=== PATIENT | female | born 1985 | race Caucasian/White ===

== ENCOUNTER 2017-02-01 17:17 | Inpatient (IN) | payer MEDICAID, OTHER ==
[~2017-02-01] VITALS: Ht 162.6 cm; Wt 90.5 kg
[2017-02-01] MEDS ORDERED: ONDANSETRON 4 MG INJ IV STA (20:06)
[2017-02-01] MEDS ORDERED: SOD CHLORIDE 0.9% 1,000 ML IV STA (20:06)
[2017-02-01] MEDS ORDERED: METOCLOPRAMIDE 10 MG INJ IV ONE (20:30)
[2017-02-01 20:47] LABS: BASOPHIL # 0.1 10^3/ul (0.0-0.1); BASOPHILS % 0.4 % (0.0-2.0); EOSINOPHILS # 0.1 10^3/ul (0.0-0.5); EOSINOPHILS % 0.7 % (0.0-7.0); HEMATOCRIT 38.4 % (37.0-47.0); LYMPHOCYTES # 2.5 10^3/ul (0.8-2.9); LYMPHOCYTES % 13.1 % (15.0-51.0); MEAN CORPUSCULAR HEMOGLOBIN 28.6 pg (29.0-33.0); MEAN CORPUSCULAR HGB CONC 33.9 g/dl (32.0-37.0); MEAN CORPUSCULAR VOLUME 84.6 fl (82.0-101.0); MEAN PLATELET VOLUME 9.1 fl (7.4-10.4); MONOCYTES % 5.1 % (0.0-11.0); NEUTROPHIL # 15.6 10^3/ul (1.6-7.5); NEUTROPHILS % 80.2 % (39.0-77.0); PLATELET COUNT 424 10^3/UL (140-415); RED BLOOD COUNT 4.54 10^6/ul (4.20-5.40); RED CELL DISTRIBUTION WIDTH 13.4 % (11.5-14.5); WHITE BLOOD COUNT 19.4 10^3/ul (4.8-10.8)
[2017-02-01 21:11] LABS: ALBUMIN 4.7 g/dl (3.3-4.9); ALBUMIN/GLOBULIN RATIO 1.3; BILIRUBIN,INDIRECT 0.2 mg/dl (0-1.1); BILIRUBIN,TOTAL 0.2 mg/dl (0.2-1.3); CALCIUM 9.2 mg/dl (8.4-10.2); CREATININE 0.69 mg/dl (0.44-1.00); POTASSIUM 3.7 mmol/L (3.5-5.1); TOTAL PROTEIN 8.3 g/dl (6.1-8.1)
[2017-02-01 21:20] LABS: ADD UMIC YES; UR AMORPHOUS CRYSTAL FEW /HPF (NONE SEEN); UR ASCORBIC ACID NEGATIVE (NEGATIVE); UR BILIRUBIN (Dip) 1+ mg/dL (NEGATIVE); UR BLOOD (Dip) 1+ mg/dL (NEGATIVE); UR CLARITY SLIGHTLY CLOUDY (CLEAR); UR COLOR AMBER (YELLOW); UR GLUCOSE (Dip) NEGATIVE (NEGATIVE); UR KETONES (Dip) TRACE mg/dL (NEGATIVE); UR LEUKOCYTE ESTERASE (Dip) NEGATIVE Leu/ul (NEGATIVE); UR MUCUS MANY /HPF (NONE SEEN); UR NITRITE (Dip) NEGATIVE (NEGATIVE); UR RBC 16 /HPF (0-5); UR SPECIFIC GRAVITY (Dip) 1.036 (1.003-1.030); UR SQUAMOUS EPITHELIAL CELL FEW /HPF (FEW); UR TOTAL PROTEIN (Dip) 1+ mg/dl (NEGATIVE); UR UROBILINOGEN (Dip) 1+ mg/dL (NEGATIVE)
--- NOTE | 2017-02-01 21:34 | RADRPT ---
PROCEDURE: US Pelvis. CLINICAL INDICATION: Lower abdominal pain. Positive test. TECHNIQUE: Multiple sonographic images of the pelvis were obtained utilizing a transabdominal and endovaginal technique. The images were reviewed on a PACS workstation. COMPARISON: None available. FINDINGS: The uterus is normal in size and echotexture and measures 10.3 x 4.2 x 5.9 cm. The endometrial echo complex is normal and measures 4.1 mm. There is no evidence of an intrauterine gestational sac. The right ovary has a normal echotexture and measures 3.4 x 2.4 x 2.6 cm. The left ovary has a norm al echotexture and measures 3.2 x 2.7 x 3.0 cm. There is a tiny amount of free fluid in the cul-de-s ac. There is a complex heterogeneous appearing right adnexal mass measuring 7.4 x 3.9 x 6.0 cm.. IMPRESSION: 1. No evidence of an intrauterine gestation with a complex appearing right adnexal mass measuring 7. 4 x 3.9 x 6.0 cm. This is a high suspicion for ectopic . ACCOUNT CONSULTANT consultation is suggested. Note: A call report was made to Romelia Chamorro Pa-c on 02/01/2017 9:33:26 PM. RPTAT: [facility] Physician Dominik Date Time Electronically viewed and signed by Physician Dominik on 02/01/2017 21:34 /
[2017-02-02] VITALS (18 sets, daily range): BP systolic 114–158; BP diastolic 48–82; PULSE 62–114; RESP 13–26; TEMP 98.1; Ht 162.6 cm; Wt 90.5 kg
--- NOTE | 2017-02-02 00:42 | ERD ---
ER Documentation Chief Complaint Date/Time DATE: 02/02/17 TIME: 00:37 Chief Complaint Abdominal pain that started 4 days ago HPI 31-year-old female no significant past medical history is a A1 presents to the ED complaining of intermittent abdominal pain that started 4 days ago. Patient reports that she has lower abdominal pain. Her last menses on November. States that she experienced vaginal spotting on January 21, 2017. Reports that her last bowel movement was this morning. States that she also experienced some nausea and vomiting. Denies any chest pain, shortness of breath, fever, chills, diarrhea, wheezing, shortness of breath. Reports that she is unsure if she is . ROS All systems reviewed and are negative except as per history of present illness. Allergies Allergies: Coded Allergies: No Known Allergy (Unverified , 02/01/17) PMhx/Soc Medical and Surgical Hx: pt denies Medical Hx, pt denies Surgical Hx History of Surgery: No Anesthesia Reaction: No Hx Neurological Disorder: No Hx Respiratory Disorders: No Hx Cardiac Disorders: No Hx Psychiatric Problems: No Hx Miscellaneous Medical Probl: No Hx Alcohol Use: No Hx Substance Use: No Hx Tobacco Use: No Smoking Status: Never smoker Physical Exam Vitals Vital Signs Date Time Temp Pulse Resp B/P Pulse Ox O2 Delivery O2 Flow Rate FiO2 02/02/17 00:10 98.1 66 17 122/69 98 Room Air 02/01/17 17:40 98.9 109 18 148/82 97 Physical Exam Const: [id number], well-nourished. In no acute distress. Head: Atraumatic, normocephalic Eyes: Normal Conjunctiva without injection. No purulent discharge. ENT: Normal external ear, nose. Moist oropharynx without tonsillar exudates. Non -erythematous pharynx. Uvula midline. No drooling. No trismus. Neck: No cervical midline tenderness. Full range of motion. No meningismus. No cervical lymphadenopathy. No JVD. Resp: Clear to auscultation bilaterally. No wheezing, rhonchi, rales, or crackles. No accessory muscle use. No retractions. Cardio: Regular rate and rhythm. No murmurs, rubs or gallops. Abd: Soft, right and left lower quadrant tenderness, non distended. Normal bowel sounds. No palpable masses. No rebound tenderness. No guarding. Negative McBurney's point. Negative psoas sign. Negative obturator sign. Skin: No petechiae or rashes Back: No midline tenderness. No CVA tenderness. Ext: No cyanosis, or edema. Neur: Awake and alert. Normal gait. Normal coordination. Psych: Normal Mood and Affect Result Diagram: 02/03/17 0506 02/01/172014 Results 24 hrs Laboratory Tests Test 02/01/17 20:15 White Blood Count 19.410^3/ul Red Blood Count 4.5410^6/ul Hemoglobin 13.0g/dl Hematocrit 38.4% Mean Corpuscular Volume 84.6fl Mean Corpuscular Hemoglobin 28.6pg Mean Corpuscular Hemoglobin Concent 33.9g/dl Red Cell Distribution Width 13.4% Platelet Count 39612^3/UL Mean Platelet Volume 9.1fl Neutrophils % 80.2% Lymphocytes % 13.1% Monocytes % 5.1% Eosinophils % 0.7% Basophils % 0.4% Nucleated Red Blood Cells % 0.0/100WBC Neutrophils # 15.610^3/ul Lymphocytes # 2.510^3/ul Monocytes # 1.010^3/ul Eosinophils # 0.110^3/ul Basophils # 0.110^3/ul Nucleated Red Blood Cells # 0.010^3/ul Urine Color LES Urine Clarity SLIGHTLY CLOUDY Urine pH 5.0 Urine Specific [place] 1.036 Urine Ketones TRACEmg/dL Urine Nitrite NEGATIVEmg/dL Urine Bilirubin 1+mg/dL Urine Urobilinogen 1+mg/dL Urine Leukocyte Esterase NEGATIVELeu/ul Urine Microscopic RBC 16/HPF Urine Microscopic WBC 1/HPF Urine Squamous Epithelial Cells FEW/HPF Urine Amorphous Crystals FEW/HPF Urine Mucus MANY/HPF Urine Hemoglobin 1+mg/dL Urine Glucose NEGATIVEmg/dL Urine Total Protein 1+mg/dl Sodium Level 141mmol/L Potassium Level 3.7mmol/L Chloride Level 104mmol/L Carbon Dioxide Level 25mmol/L Anion Gap 16 Blood Urea Nitrogen 14mg/dl Creatinine 0.69mg/dl Glucose Level 120mg/dl Calcium Level 9.2mg/dl Total Bilirubin 0.2mg/dl Direct Bilirubin 0.00mg/dl Indirect Bilirubin 0.2mg/dl Aspartate Amino Transf (AST/SGOT) 25IU/L Alanine Aminotransferase (ALT/SGPT) 36IU/L Alkaline Phosphatase 115IU/L Total Protein 8.3g/dl Albumin 4.7g/dl Globulin 3.60g/dl Albumin/Globulin Ratio 1.30 Lipase 26U/L Beta HCG, Quantitative 1304.7mIU/ml Current Medications Medications (Trade) Dose Ordered Sig/Raj Route PRN Reason Start Time Stop Time Status Last Admin Dose Admin Sodium Chloride (NS) 1,000 ml @ 1,000 mls/hr Q1H STAT IV 02/01/17 20:06 02/01/17 21:05 DC 02/01/17 20:59 Ondansetron HCl (Zofran Inj) 4 mg ONCE STAT IV 02/01/17 20:06 02/01/17 20:07 Cancel Metoclopramide HCl 10 mg 10 mg ONCE ONCE IV 02/01/17 20:30 02/01/17 20:31 DC 02/01/17 20:59 Lactated Ringer's 1,000 ml @ 125 mls/hr Q8H IV 02/02/17 01:29 02/04/17 17:33 Cefazolin Sodium/ Dextrose (Ancef 2 Gm/50 ml (Pmx)) 50 ml @ 100 mls/hr PRE-OP ONCE IVPB 02/02/17 01:30 02/02/17 01:59 DC Procedures/MDM 31-year-old female patient with no significant past medical history presents to the ED complaining of nausea, abdominal pain that started 4 days ago. Patient is afebrile and nontoxic-appearing. Patient has normal vital signs. She is a A1. Positive urine noted here in the ED. An ultrasound, beta- hCG, CBC, type and RH, UA was ordered to evaluate patient. CBC: No evidence of severe infection or anemia Urine: No elevation in nitrites, leukocyte esterase, hematuria. No evidence of UTI Rh: O positive No indication for Rhogam at this time. beta Hc PROCEDURE: US Pelvis. CLINICAL INDICATION: Lower abdominal pain. Positive test. TECHNIQUE: Multiple sonographic images of the pelvis were obtained utilizing a transabdominal and endovaginal technique. The images were reviewed on a PACS workstation. COMPARISON: None available. FINDINGS: The uterus is normal in size and echotexture and measures 10.3 x 4.2 x 5.9 cm. The endometrial echo complex is normal and measures 4.1 mm. There is no evidence of an intrauterine gestational sac. The right ovary has a normal echotexture and measures 3.4 x 2.4 x 2.6 cm. The left ovary has a normal echotexture and measures 3.2 x 2.7 x 3.0 cm. There is a tiny amount of free fluid in the cul-de-sac. There is a complex heterogeneous appearing right adnexal mass measuring 7.4 x 3.9 x 6.0 cm.. IMPRESSION: 1. No evidence of an intrauterine gestation with a complex appearing right adnexal mass measuring 7.4 x 3.9 x 6.0 cm. This is a high suspicion for ectopic . MANAGER PULMONARY consultation is suggested. Note: A call report was made to Romelia Chamorro Pa-c on 02/01/2017 9:33:26 PM. She was noted to have a probable ectopic in the right adnexa. Patient 's bleeding symptoms have stabilized while in the department. Low suspicion for symptomatic anemia, sepsis, PID, appendicitis, ovarian torsion, tubo- ovarian abscess, surgical abdomen, or other emergent conditions. This was discussed with my supervising physician, Dr. Bustillo who agreed that patient needed to have further care and treatment under laborist business relations manager. The laborist on-call, Dr. Rene was consulted and she will be admitting the patient for possible right ectopic . Patient is hemodynamically stable at this time. Patient agreed to the admission. Dr. Rene performed a pelvic exam. Departure Diagnosis: Primary Impression: Ectopic Location of ectopic : unspecified location Intrauterine status: unspecified Qualified Code: O00.90 - Ectopic , unspecified location, unspecified whether intrauterine present Condition: Stable ROMELIA CHAMORRO PA-C Feb 02, 2017 00:42
--- NOTE | 2017-02-02 01:25 | CONS ---
Date/Time of Note Date/Time of Note DATE: 02/02/17 TIME: :18 Assessment/Plan Assessment/Plan Chief Complaint/Hosp Course Abdominal pain hCG above discriminatory zone, no evidence of IUP Complex adnexal right mass Highly suspicious for ectopic Currently patient hemodynamically stable No evidence of active bleeding Right ovarian mass size 7 x 6 cm HCG 13,000 Patient is a candidate for surgical management Discussed with the patient about the procedure of diagnostic laparoscopy possible laparoscopic salpingostomy versus salpingectomy possible D&C possible open and possible blood transfusion Risks and benefits of procedure including risk of infection, bleeding, damage to adjacent structures including bowel and bladder risk of conversion to open procedure and risk of uterine perforation risk of blood transfusion including but not limited to blood borne infection including HIV, hepatitis B and C and transfusion reaction discussed with the patient in detail. Patient verbalized understanding will continue to observe the patient closely plan to admit the patient to MedSurg unit Keep the patient on p.o. IV fluid D5 LR 125 cc/h Plan to proceed with surgery in a.m. Problems: Consultation Date/Type/Reason Admit Date/Time Date of Consultation: Feb 02, 2017 Type of Consultation: DATA ANALYSIS ASSISTANT Reason for Consultation Evaluation for Ectopic Hx of Present Illness 31-year-old with amenorrhea for 6 weeks presented with complaint of abdominal pain started 5 days ago and the mid lower abdomen that increase since yesterday. Patient also reports had some light spotting/bleeding when she presented to the emergency room. Patient denies any dizziness, lightheadedness , shortness of breath or chest pain. Pain is mild to moderate in both lower abdomen. She was noted to have positive test and hCG is 13,000 and an ultrasound there is no evidence of IUP with evidence of a right complex adnexal mass 7 x 6 cm suspicious for ectopic . I was consulted by VEGETABLE FARMER at the emergency room for further evaluation. Patient was unaware of current episode. She was not using any control. LMP January 21, 2017. 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 Smokes about 10 cigarettes a day for the last 6 months.) Drug Use: none Other Social History Patient is not Exam/Review of Systems Vital Signs Vitals Vital Signs Date Time Temp Pulse Resp B/P Pulse Ox O2 Delivery O2 Flow Rate FiO2 02/02/17 00:10 98.1 66 17 122/69 98 Room Air Exam Constitutional: alert, oriented, well developed Psych: nl mood/affect, no complaints Head: atraumatic, normocephalic Eyes: EOMI, nl conjunctiva, nl lids ENMT: nl external ears & nose, nl lips & teeth, nl nasal mucosa & septum Neck: non-tender, supple Respiratory: clear to auscultation, normal air movement Cardiovascular: nl pulses, regular rate and rhythm Gastrointestinal: soft, tender (Tenderness in the lower abdomen. No rebound tenderness, no guarding, no rigidity, no evidence of acute abdomen) Genitourinary - Female: nl adnexae, nl external genitalia Musculoskeletal: nl extremities to inspection, nl gait and stance Extremities: normal pulses Neurological: PRODUCER ASSISTANT II-XII intact, nl mental status Results Result Diagram: 02/01/17201402/01/172014 Results 24 hrs Laboratory Tests Test 02/01/17 20:15 White Blood Count 19.4 H Red Blood Count 4.54 Hemoglobin 13.0 Hematocrit 38.4 Mean Corpuscular Volume 84.6 Mean Corpuscular Hemoglobin 28.6 L Mean Corpuscular Hemoglobin Concent 33.9 Red Cell Distribution Width 13.4 Platelet Count 424 H Mean Platelet Volume 9.1 Neutrophils % 80.2 H Lymphocytes % 13.1 L Monocytes % 5.1 Eosinophils % 0.7 Basophils % 0.4 Nucleated Red Blood Cells % 0.0 Neutrophils # 15.6 H Lymphocytes # 2.5 Monocytes # 1.0 H Eosinophils # 0.1 Basophils # 0.1 Nucleated Red Blood Cells # 0.0 Urine Color LES Urine Clarity SLIGHTLY CLOUDY A Urine pH 5.0 Urine Specific [place] 1.036 H Urine Ketones TRACE A Urine Nitrite NEGATIVE Urine Bilirubin 1+ H Urine Urobilinogen 1+ H Urine Leukocyte Esterase NEGATIVE Urine Microscopic RBC 16 H Urine Microscopic WBC 1 Urine Squamous Epithelial Cells FEW Urine Amorphous Crystals FEW A Urine Mucus MANY A Urine Hemoglobin 1+ H Urine Glucose NEGATIVE Urine Total Protein 1+ H Sodium Level 141 Potassium Level 3.7 Chloride Level 104 Carbon Dioxide Level 25 Anion Gap 16 Blood Urea Nitrogen 14 Creatinine 0.69 Glucose Level 120 Calcium Level 9.2 Total Bilirubin 0.2 Direct Bilirubin 0.00 Indirect Bilirubin 0.2 Aspartate Amino Transf (AST/SGOT) 25 Alanine Aminotransferase (ALT/SGPT) 36 Alkaline Phosphatase 115 Total Protein 8.3 H Albumin 4.7 Globulin 3.60 H Albumin/Globulin Ratio 1.30 Lipase 26 Beta HCG, Quantitative 1304.7 Procedures Procedures PROCEDURE: US Pelvis. CLINICAL INDICATION: Lower abdominal pain. Positive test. TECHNIQUE: Multiple sonographic images of the pelvis were obtained utilizing a transabdominal and endovaginal technique. The images were reviewed on a PACS workstation. COMPARISON: None available. FINDINGS: The uterus is normal in size and echotexture and measures 10.3 x 4.2 x 5.9 cm. The endometrial echo complex is normal and measures 4.1 mm. There is no evidence of an intrauterine gestational sac. The right ovary has a normal echotexture and measures 3.4 x 2.4 x 2.6 cm. The left ovary has a normal echotexture and measures 3.2 x 2.7 x 3.0 cm. There is a tiny amount of free fluid in the cul-de-sac. There is a complex heterogeneous appearing right adnexal mass measuring 7.4 x 3.9 x 6.0 cm.. IMPRESSION: 1. No evidence of an intrauterine gestation with a complex appearing right adnexal mass measuring 7.4 x 3.9 x 6.0 cm. This is a high suspicion for ectopic . DATA ANALYSIS ASSISTANT consultation is suggested. Note: A call report was made to Romelia Chamorro Pa-c on 02/01/2017 9:33:26 PM. RANDELL CUTLER MD Feb 02, 2017 01:25
[2017-02-02] MEDS ORDERED: CEFAZOLIN 2 GM/50 ML (PMX) 50 ML IVPB ONE (01:30)
[2017-02-02 03:14] LABS: BASOPHIL # 0.1 10^3/ul (0.0-0.1); BASOPHILS % 0.4 % (0.0-2.0); EOSINOPHILS # 0.3 10^3/ul (0.0-0.5); EOSINOPHILS % 1.6 % (0.0-7.0); HEMOGLOBIN 11.4 g/dl (12.0-16.0); LYMPHOCYTES # 4.1 10^3/ul (0.8-2.9); LYMPHOCYTES % 25.3 % (15.0-51.0); MEAN CORPUSCULAR HEMOGLOBIN 27.7 pg (29.0-33.0); MEAN CORPUSCULAR HGB CONC 32.6 g/dl (32.0-37.0); MEAN PLATELET VOLUME 9.1 fl (7.4-10.4); MONOCYTE # 1.2 10^3/ul (0.3-0.9); MONOCYTES % 7.2 % (0.0-11.0); NEUTROPHIL # 10.5 10^3/ul (1.6-7.5); NEUTROPHILS % 65.1 % (39.0-77.0); PLATELET COUNT 342 10^3/UL (140-415); RED BLOOD COUNT 4.12 10^6/ul (4.20-5.40); RED CELL DISTRIBUTION WIDTH 13.6 % (11.5-14.5); WHITE BLOOD COUNT 16.1 10^3/ul (4.8-10.8)
[2017-02-02] MEDS: LACTATED RINGER'S 1,000 ML IV SCH ×4 (03:21→17:18)
[2017-02-02] MEDS ORDERED: morphine 4 MG/ML VIAL IV PRN ×2 (03:30→20:30)
[2017-02-02] MEDS ORDERED: ONDANSETRON 4 MG INJ IV PRN ×2 (03:30→18:00)
[2017-02-02] MEDS ORDERED: GLYCOPYRROLATE 0.4 MG INJ ONE ×2 (07:00)
[2017-02-02] MEDS ORDERED: NEOSTIGMINE 3 MG/3 ML SYRINGE ONE (07:00)
--- NOTE | 2017-02-02 15:16 | HPN ---
Date/Time of Note Date/Time of Note DATE: 02/02/17 TIME: 15:05 Interval H&P Admission Note February 02, 2017 Preoperative history and physical This patient is 31 years old 4 para 2 1 who had her last menstrual period about 5 weeks her last delivery was in 2009 she had an IUD 2013 She was not using any contraceptive method during the past 3 years, She did not know that she became , however started having lower abdominal pain and came to emergency room around midnight .On examination in the emergency room her beta-hCG was 1300 IU . she had an ultrasound study done which is reported; uterus is normal in size and texture. Endometrial echo complex is normal 4.1 mm ,no evidence of intrauterine ' the right ovary was normal , left ovary was also normal . A small amount of free fluid in the posterior cul-de-sac. There was a complex heterogeneous appearing right adnexal mass measuring 7.4 x 3.9 x 6 cm and the impression of the radiologist was strongly suspicious of ectopic . When I examined her today. I would describe her as a well-developed well- nourished woman . her main complaint is lower abdominal pain and cramping. On examination her ear nose throat chest heart lungs were normal except that abdomen was somewhat tender on palpation on both right and left quadrant no CVA tenderness. On pelvic examination vulva and vagina was normal the cervix was not very tender on motion however she did have some tenderness. Laboratory Tests Test 02/01/17 20:15 02/02/17 03:00 02/02/17 07:38 White Blood Count 19.410^3/ul 16.110^3/ul Red Blood Count 4.5410^6/ul 4.1210^6/ul Hemoglobin 13.0g/dl 11.4g/dl Hematocrit 38.4% 35.0% Mean Corpuscular Volume 84.6fl 85.0fl Mean Corpuscular Hemoglobin 28.6pg 27.7pg Mean Corpuscular Hemoglobin Concent 33.9g/dl 32.6g/dl Red Cell Distribution Width 13.4% 13.6% Platelet Count 54843^3/UL 64441^3/UL Mean Platelet Volume 9.1fl 9.1fl Neutrophils % 80.2% 65.1% Lymphocytes % 13.1% 25.3% Monocytes % 5.1% 7.2% Eosinophils % 0.7% 1.6% Basophils % 0.4% 0.4% Nucleated Red Blood Cells % 0.0/100WBC 0.0/100WBC Neutrophils # 15.610^3/ul 10.510^3/ul Lymphocytes # 2.510^3/ul 4.110^3/ul Monocytes # 1.010^3/ul 1.210^3/ul Eosinophils # 0.110^3/ul 0.310^3/ul Basophils # 0.110^3/ul 0.110^3/ul Nucleated Red Blood Cells # 0.010^3/ul 0.010^3/ul Urine Color LES Urine Clarity SLIGHTLY CLOUDY Urine pH 5.0 Urine Specific [place] 1.036 Urine Ketones TRACEmg/dL Urine Nitrite NEGATIVEmg/dL Urine Bilirubin 1+mg/dL Urine Urobilinogen 1+mg/dL Urine Leukocyte Esterase NEGATIVELeu/ul Urine Microscopic RBC 16/HPF Urine Microscopic WBC 1/HPF Urine Squamous Epithelial Cells FEW/HPF Urine Amorphous Crystals FEW/HPF Urine Mucus MANY/HPF Urine Hemoglobin 1+mg/dL Urine Glucose NEGATIVEmg/dL Urine Total Protein 1+mg/dl Sodium Level 141mmol/L Potassium Level 3.7mmol/L Chloride Level 104mmol/L Carbon Dioxide Level 25mmol/L Anion Gap 16 Blood Urea Nitrogen 14mg/dl Creatinine 0.69mg/dl Glucose Level 120mg/dl Calcium Level 9.2mg/dl Total Bilirubin 0.2mg/dl Direct Bilirubin 0.00mg/dl Indirect Bilirubin 0.2mg/dl Aspartate Amino Transf (AST/SGOT) 25IU/L Alanine Aminotransferase (ALT/SGPT) 36IU/L Alkaline Phosphatase 115IU/L Total Protein 8.3g/dl Albumin 4.7g/dl Globulin 3.60g/dl Albumin/Globulin Ratio 1.30 Lipase 26U/L Beta HCG, Quantitative 1304.7mIU/ml 1000.8mIU/ml Current Medications Medications (Trade) Dose Ordered Sig/Raj Route PRN Reason Start Time Stop Time Status Last Admin Dose Admin Sodium Chloride (NS) 1,000 ml @ 1,000 mls/hr Q1H STAT IV 02/01/17 20:06 02/01/17 21:05 DC 02/01/17 20:59 Ondansetron HCl (Zofran Inj) 4 mg ONCE STAT IV 02/01/17 20:06 02/01/17 20:07 Cancel Metoclopramide HCl 10 mg 10 mg ONCE ONCE IV 02/01/17 20:30 02/01/17 20:31 DC 02/01/17 20:59 Lactated Ringer's 1,000 ml @ 125 mls/hr Q8H IV 02/02/17 01:29 02/02/17 03:21 Cefazolin Sodium/ Dextrose (Ancef 2 Gm/50 ml (Pmx)) 50 ml @ 100 mls/hr PRE-OP ONCE IVPB 02/02/17 01:30 02/02/17 01:59 DC Morphine Sulfate (morphine) 3 mg Q3H PRN IV PAIN 02/02/17 03:30 Ondansetron HCl (Zofran Inj) 4 mg Q6H PRN IV NAUSEA AND/OR VOMITING 02/02/17 03:30 Due to suspicion of the ectopic with positive test although the level being low at 1300 and complain of pain and adnexal mass reported on ultrasound as well as the suspicion of ectopic the findings was discussed with the patient with a suggestion for her to undergo a D&C, diagnostic laparoscopy and removal of ectopic and most likely right salpingectomy. I also mentioned to her that with the other remaining tube she should be able to become although the chance of ectopic will be slightly higher than normal. The small likelihood of a blood loss and need for transfusion as well as possibility of infection in the complication of the procedure injury to any other organ in the abdomen was mentioned to her. Both her and her sister understand all of these possibilities and she requested to undergo this procedure. ANGELITO BASSETT MD Feb 02, 2017 15:16
--- NOTE | 2017-02-02 17:30 | OPR ---
Operative Report Planned Procedure Procedure date Please remove this dictation Anesthesia Type: spinal Physician Certification I ANGELITO BASSETT MD Feb 02, 2017 17:30 Procedure Description Under satisfactory Spinal anesthesia, the patient was prepped and draped and placed in a supine position, tilted to the left. Pfannenstiel incision was made , carried through the subcutaneous tissue. Bleeders brought under control with electrocautery. Fascia incised to the length of the incision. Rectus muscles from the fascia, divided midline. Peritoneum exposed, entered through a transverse incision. Exploration of abdomen revealed gravid uterus. Bladder flap was developed. Transverse incision was made in the lower segment of the uterus. Amniotic sac ruptured. clear amniotic fluid noted. [] Nasal oropharyngeal suction was performed. The baby was handed to the team for immediate attention. The placenta was delivered manually intact. Uterine cavity was cleaned with wet sponge and drainage established. Uterus closed in 2 layers using 0 chromic catgut in continuous fashion. Peritoneal cavity irrigated with warm saline. Sponge, needle and instrument count reported to be correct. Abdominal peritoneum closed with Double 0 chromic catgut continuously. Rectus muscle approximated with Same material. Fascia closed with Vicryl 1, and skin closed with saulo. Estimated blood loss 600 cc. Post-Procedure Findings: Live Baby Female with score of 18 1 minute 8 from 5 minutes the weight of the baby was 6 lbs. 13 oz. Physician Certification I, the undersigned physician, hereby certify that I have discussed the procedure described in this consent form with this patient (or the patient's legal dental sales representative), including: * The risk and benefits of the procedure; * Any adverse reactions that may reasonably be expected to occur; * Any alternative efficacious methods of treatment which may be medically viable ; * The potential problems that may occur during recuperation; * Potential for blood transfusion and associated risks/benefits; and * Any research or economic interest I may have regarding this treatment. I further certify that the patient/legally responsible person was encouraged to ask question and that all questions were answered. ANGELITO BASSETT MD Feb 02, 2017 17:30
[2017-02-02] MEDS ORDERED: SUCCINYLCHOLINE CHLORIDE 100 MG/5 ML SYG IV ONE (17:51)
[2017-02-02] MEDS ORDERED: PROPOFOL 20 ML ONE ×2 (17:51→18:19)
[2017-02-02] MEDS ORDERED: FENTAnyl 50 MCG/ML VIAL ONE (17:51)
[2017-02-02] MEDS ORDERED: ROCURONIUM 50 MG INJ ONE (17:51)
[2017-02-02] MEDS ORDERED: MIDAZOLAM 1 MG/ML 2 ML INJ ONE (17:51)
[2017-02-02] MEDS ORDERED: LIDOCAINE 2% (SDV) 5 ML INJ ONE (17:51)
[2017-02-02] MEDS ORDERED: DIPHENHYDRAMINE 50 MG INJ IV PRN (18:00)
[2017-02-02] MEDS ORDERED: FENTAnyl 50 MCG/ML VIAL IV PRN ×3 (18:00)
[2017-02-02] MEDS ORDERED: PROCHLORPERAZINE 10 MG INJ IV PRN (18:00)
[2017-02-02] MEDS ORDERED: MEPERIDINE 25 MG INJ IV PRN (18:00)
[2017-02-02] MEDS ORDERED: HYDROmorphONE (0.2 MG/ML) 10ML SYG IV PRN ×3 (18:00)
[2017-02-02] MEDS ORDERED: CEFAZOLIN 1 GM INJ ONE (18:12)
[2017-02-02] MEDS ORDERED: ONDANSETRON 4 MG INJ ONE (18:18)
[2017-02-02] MEDS ORDERED: DEXAMETHASONE 4 MG/ML 1 ML INJ ONE (18:18)
[2017-02-02] MEDS ORDERED: FAMOTIDINE 20 MG INJ ONE (18:19)
[2017-02-02] MEDS ORDERED: HYDROmorphONE 2 MG/ML SYG ONE (20:04)
--- NOTE | 2017-02-02 21:12 | OPR ---
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 Procedure: Under satisfactory general anesthesia patient was placed in lithotomy position. vaginal and abdominal area were prepped and patient was prepared for a D&C followed by laparoscopic procedure for ectopic . On pelvic examination the uterus was top normal size. Fixed in place difficult to move . Due to fixation of the uterus was difficult to visualize the cervix to insert a HUMI catheter. However the procedure continued abdominally by making small incision under the umbilicus. Through this incision a Veress needle were inserted inside the peritoneal cavity and this cavity was inflated with 3-1/2 L of gas followed by insertion of a 5 mm trocar. The abdominal cavity cavity as well as pelvic cavity had extensive adhesions between the uterus, omentum,portion of bowel especially on the right side on the left side.there was also extensive adhesion .the tube on this side was somewhat enlarged possibly containing the ectopic or tubal . At this time a second and third trocar was inserted and adhesions around the tubes ovary uterus and portion of the bowel were lysed as much as possible the right tube which appear to have containing ectopic or aborted ectopic was picked up and the mesosalpinx in a several steps cauterized and cut and finally was removed and sent for pathological examination. The bleeders were controlled, copious amount of irrigation was performed,.At the end of the procedure there were no evidence of any active bleeders the right ovary was in place intact. No injury to any other organ in the pelvic or abdominal cavity . As I mentioned the specimen was removed and the site of incision of the larger trocar were sutured with 3-0 Vicryl and 2 stitches The skin incisions were sutured with 4 O Monocryl sutures. . Patient received 2 g of Ancef as a prophylactic measure. Patient was transferred to the recovery room in a stable condition. 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
[2017-02-02] MEDS ORDERED: SODIUM CHLORIDE 5% 15ML OPH LEFT EYE PRN (22:30)
[2017-02-03] MEDS: LACTATED RINGER'S 1,000 ML IV SCH ×3 (01:01→18:51)
[2017-02-03] MEDS: OPHTHALMIC IRRIG SOLUTION 120 ML LEFT EYE PRN ×4 (01:06→21:09)
[2017-02-03 01:36] VITALS: BP 114/55; RESP 20
[2017-02-03] MEDS: KETOROLAC 15 MG INJ IV PRN ×3 (03:54→21:09)
[2017-02-03 05:44] LABS: BASOPHIL # 0.1 10^3/ul (0.0-0.1); BASOPHILS % 0.5 % (0.0-2.0); HEMATOCRIT 32.3 % (37.0-47.0); HEMOGLOBIN 10.3 g/dl (12.0-16.0); LYMPHOCYTES # 1.7 10^3/ul (0.8-2.9); LYMPHOCYTES % 13.7 % (15.0-51.0); MEAN CORPUSCULAR HEMOGLOBIN 27.4 pg (29.0-33.0); MEAN CORPUSCULAR HGB CONC 31.9 g/dl (32.0-37.0); MEAN CORPUSCULAR VOLUME 85.9 fl (82.0-101.0); MEAN PLATELET VOLUME 9.4 fl (7.4-10.4); MONOCYTE # 0.6 10^3/ul (0.3-0.9); MONOCYTES % 4.7 % (0.0-11.0); NEUTROPHIL # 10.2 10^3/ul (1.6-7.5); NEUTROPHILS % 80.8 % (39.0-77.0); PLATELET COUNT 310 10^3/UL (140-415); RED BLOOD COUNT 3.76 10^6/ul (4.20-5.40); RED CELL DISTRIBUTION WIDTH 13.4 % (11.5-14.5); WHITE BLOOD COUNT 12.6 10^3/ul (4.8-10.8)
[2017-02-03 07:55] VITALS: BP 117/56; RESP 20
[2017-02-03] MEDS: OXYCODONE/ACETAMINOPHEN (5/325) TAB PO PRN ×3 (08:20→21:09)
--- NOTE | 2017-02-03 10:41 | QN ---
Documentation Comment s/p laparascopic salpingectomy and lysis of adhesion has some blurry vision from right eye that is getting better(Thinks that it was due to tape) VS stable Gen NAD Abd soft ND NT Incisions intact Genitalia No blood at perinium --->CT abdomen and pelvic --->B-HCG --->Eye drops(possible phthalmology consult if the situation gets worse) SIMEON ALBERT M.D. Feb 03, 2017 10:41
[2017-02-03] MEDS ORDERED: BARIUM SULF 2% 450 ML BTL (BERRY SMOOTHIE) PO ONE (11:00)
--- NOTE | 2017-02-03 15:37 | RADRPT ---
PROCEDURE: CT Abdomen and Pelvis without contrast. CLINICAL INDICATION: Ectopic status post surgery. Evaluate for organ damage. TECHNIQUE: Multiple contiguous axial CT images of the abdomen and pelvis were obtained without the administration of intravenous contrast. Coronal and sagittal reconstructions were also performed. CTDIvol (mGy): 20.80; Total Exam DLP (mGy-cm): 1204.98. One or more of the following dose reduction techniques were utilized: - Automated exposure control. - Adjustment of the mA and/or kV according to patient size. - Use of iterative reconstruction technique. COMPARISON: Pelvic ultrasound 02/01/2017. FINDINGS: Limited imaging of the lower thorax is unremarkable. The liver and spleen are homogeneous in density. The gallbladder, pancreas and adrenal glands are u nremarkable. The kidneys are symmetric in size. There are no nephroureteral stones. There is no hydronephrosis o r abnormal perinephric inflammation. The abdominal aorta is normal in caliber. There is no periaortic / retroperitoneal lymphadenopathy. The stomach and small and large intestines are unremarkable. The appendix is not visualized. There are no focal inflammatory changes of the mesentery. There is no mesenteric lymphadenopathy. Scatt ered few pockets of free intraperitoneal air are seen anterior to the liver margin. Scattered pocket s of extraperitoneal air are also observed predominately within the mid to lower abdomen. Imaging fi ndings are compatible with the patient's history of recent surgery. The bladder is collapsed. A moderate amount of hemorrhagic free fluid is seen within the pelvis and is similar in appearance when correlated with recent pelvic ultrasound. The uterus is unremarkable. The ovaries are partially obscured by a hemorrhagic fluid within the pelvis. Bilateral L5 pars interarticularis defects are observed. Trace anterolisthesis of L5 over S1 is pres ent. Body wall soft tissues are unremarkable. IMPRESSION: Hemorrhagic free fluid within the pelvis, similar in appearance when correlated with recent pelvic u ltrasound. Free intraperitoneal and extraperitoneal air, likely postoperative in nature given recent surgery. There is no obvious evidence of organ damage on this noncontrast CT of the abdomen and pelvis. If th ere is high clinical suspicion of solid organ damage, consider follow up contrast enhanced CT abdome n/pelvis. RPTAT: AAQQ .Hayley Guevara MD, MD Date Time Electronically viewed and signed by .Hayley Guevara MD, on 02/03/2017 15:36 .T/
[2017-02-03 20:00] VITALS: BP 116/56; PULSE 76; RESP 20
[2017-02-04] MEDS: OXYCODONE/ACETAMINOPHEN (5/325) TAB PO PRN ×2 (01:24→09:36)
[2017-02-04] MEDS: LACTATED RINGER'S 1,000 ML IV SCH ×3 (01:24→17:33)
[2017-02-04 01:33] VITALS: BP 96/50; PULSE 74; RESP 18
[2017-02-04 07:49] VITALS: BP 99/58; RESP 20
--- NOTE | 2017-02-04 17:15 | QN ---
Documentation Comment Progress Note Laborist POD #2 S/p Lsc 6 salpingectomy with lots of adhesions present. Pt had been doing well but started to have a lot of gas today and this AM it was moving but now it is not and she is very uncomfortable and was given IV Morphine. Otherwise she was getting IV Toradol and Percocet.No BM yet. Afebrile. VSS. Abdomen not overtly distended but pt reports that it is when pressed. Incisions all clean, dry and intact. Ext: NT, no edema. Beta Hcg today is 600 which is down from a starting point of 1300, and then 1100 yesterday. P: Mylicon. Hernandez flush. Stop the narcotics and change pt to Motrin 800 mg q 6 hour RTC. If pt feels better she could conceivably go home later otherwise she will be d/ jada tomorrow. Pt will need a note for work stating that she had emergency surgery and she will need to be out of work from 2-6 weeks. Pt will need to return to a prior [facility] to get her disability papers filled out. MODESTA REN MD Feb 04, 2017 17:15
[2017-02-04] MEDS: IBUPROFEN 800 MG TAB PO SCH ×2 (18:34→21:57)
[2017-02-04 20:10] VITALS: BP 123/59; PULSE 70; RESP 18
[2017-02-05 02:00] VITALS: BP 109/59; PULSE 53; RESP 19
[2017-02-05] MEDS: LACTATED RINGER'S 1,000 ML IV SCH ×2 (05:08→08:53)
[2017-02-05] MEDS: IBUPROFEN 800 MG TAB PO SCH ×2 (08:01→12:44)
[2017-02-05 08:15] VITALS: BP 115/58; RESP 16
[2017-02-05 10:54] LABS: BASOPHILS % 0.4 % (0.0-2.0); EOSINOPHILS # 0.4 10^3/ul (0.0-0.5); EOSINOPHILS % 3.8 % (0.0-7.0); HEMATOCRIT 34.8 % (37.0-47.0); LYMPHOCYTES # 1.8 10^3/ul (0.8-2.9); LYMPHOCYTES % 18.4 % (15.0-51.0); MEAN CORPUSCULAR HEMOGLOBIN 27.2 pg (29.0-33.0); MEAN CORPUSCULAR HGB CONC 31.6 g/dl (32.0-37.0); MEAN CORPUSCULAR VOLUME 86.1 fl (82.0-101.0); MEAN PLATELET VOLUME 9.4 fl (7.4-10.4); MONOCYTES % 10.2 % (0.0-11.0); NEUTROPHIL # 6.6 10^3/ul (1.6-7.5); NEUTROPHILS % 66.8 % (39.0-77.0); PLATELET COUNT 332 10^3/UL (140-415); RED BLOOD COUNT 4.04 10^6/ul (4.20-5.40); RED CELL DISTRIBUTION WIDTH 13.4 % (11.5-14.5); WHITE BLOOD COUNT 9.9 10^3/ul (4.8-10.8)
[2017-02-05 10:55] LABS: ALBUMIN 3.8 g/dl (3.3-4.9); ALBUMIN/GLOBULIN RATIO 1.18; BILIRUBIN,INDIRECT 0.4 mg/dl (0-1.1); BILIRUBIN,TOTAL 0.4 mg/dl (0.2-1.3); CALCIUM 8.9 mg/dl (8.4-10.2); CREATININE 0.61 mg/dl (0.44-1.00); POTASSIUM 3.8 mmol/L (3.5-5.1)
--- NOTE | 2017-02-05 12:13 | PD.PPDC ---
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
[2017-02-05 14:00] VITALS: BP 122/56; RESP 18
[2017-02-05 14:32] VITALS: BP 120/60; PULSE 80; RESP 16
--- NOTE | 2017-02-06 03:19 | DS ---
DATE OF ADMISSION: 02/02/2017 DATE OF DISCHARGE: 02/05/2017 DISCHARGE DIAGNOSIS: Status post laparoscopy with a right salpingectomy for ectopic . HISTORY AND HOSPITAL COURSE: The patient is a 31-year-old who presented to the hospital with abdomi nal pain. The patient was diagnosed with a right ectopic , underwent a laparoscopic right salpingectomy. There were also adhesions noted in the abdomen which were removed. The patient post op day 1 had some abdominal pain and gas distention, had a CT scan which was within normal limits. The patient is postop day #3 now, is doing well, tolerating p.o., is ambulating, is passing gas, has had a bowel movement. Pain is minimal. Postop hemoglobin is stable at 11.1, hCG is down to 224, d own from 1304. Chemistries within normal limits. Pathology is still pending. Patient is stable fo r discharge home. PHYSICAL EXAMINATION: VITAL SIGNS: Stable. HEART: Regular rhythm. LUNGS: Clear to auscultation bilaterally. ABDOMEN: Soft, nontender, no rebound, no guarding. Wounds are clean, dry and intact. DISPOSITION: The patient will be discharged home. Follow up with [facility] at [facility] within 2 weeks. ER precautions were given. The patient is stable upon discharge. Dictated By: FENG ARRIOLA MD /RADHA Conf#: [id number] DID#: [id number]
== END 2017-02-05 14:32 | disposition home or self-care (01) | DRG 777 ==
LOC: FTE 17:17 → MS2 02-02 01:34
PROVIDERS: ADMIT Obstetrics & Gynecology Obstetrics; ATTEND Obstetrics & Gynecology Obstetrics
PROC: 10T24ZZ Resection of Products of Conception, Ectopic, Percutaneous Endoscopic Approach (ICD-10-PCS; 2017-02-02)
PROC: 0UB54ZZ Excision of Right Fallopian Tube, Percutaneous Endoscopic Approach (ICD-10-PCS; principal; 2017-02-02 15:30)
DX: O00.101 Right tubal pregnancy without intrauterine pregnancy (principal); E66.9 Obesity, unspecified; Z87.891 Personal history of nicotine dependence; Z68.34 Body mass index [BMI] 34.0-34.9, adult; N73.6 Female pelvic peritoneal adhesions (postinfective)
CPT/HCPCS: 36415; 74176; 76801; 76817; 80053; 81001; 83690; 84702; 85025; 86850; 86900; 86901; 88305; 96374; J0690; J1100; J1170; J1885; J2250; J2270; J2405; J2710; J2765; J3010; J7030; J7120

== ENCOUNTER 2018-12-19 10:03 | Emergency (ER) | payer MEDICAID, OTHER ==
[~2018-12-19] VITALS: Ht 160 cm; Wt 88.5 kg
[~2018-12-19 10:03] MED LIST: HYDR-4011 PO; ONDA4TAB14 PO
[2018-12-19 10:10] VITALS: Ht 160 cm; Wt 88.5 kg
[2018-12-19] MEDS ORDERED: ACETAMINOPHEN 325 MG TAB PO STA (11:43)
[2018-12-19] MEDS ORDERED: ONDANSETRON (ODT) 4 MG TAB ODT STA (15:03)
[2018-12-19] MEDS ORDERED: METHOTREXATE 50 MG INJ IM ONE ×2 (15:30→16:30)
[2018-12-19 17:50] VITALS: BP 131/82; PULSE 59; RESP 18
== END 2018-12-19 17:52 | disposition home or self-care (01) ==
LOC: FTE 10:03
DX: O00.202 Left ovarian pregnancy without intrauterine pregnancy (principal); R10.32 Left lower quadrant pain; O99.331 Smoking (tobacco) complicating pregnancy, first trimester; F17.210 Nicotine dependence, cigarettes, uncomplicated; Z3A.00 Weeks of gestation of pregnancy not specified
CPT/HCPCS: 36415; 76801; 76817; 80053; 81001; 84702; 85025; 86900; 86901; 96372; J9260; Z7502; Z7610